=== PATIENT | male | born 1995 | race Caucasian/White ===

== ENCOUNTER 2016-05-26 08:52 | Emergency (ER) | payer OTHER ==
[2016-05-26] MEDS ORDERED: DIPHTH,PERTUSS(ACELL),TET VAC 0.5 ML VIAL IM ONE ×2 (09:25→10:14)
[2016-05-26 09:29] VITALS: BP 144/94
--- NOTE | 2016-05-26 09:29 | ERNOTE ---
Upper Extremity HPI - Narrative Date of Service: 05/26/16 - General Extremities Pain Location: thumb: left Time Seen by Provider: 05/26/16 09:21 Source: patient Exam Limitations: no limitations - Immun/Allergies/Home Medications Allergies/Adverse Reactions: Allergies Allergy/AdvReac Type Severity Reaction Status Date / Time Unobtainable Allergy Unverified 05/26/16 09:27 Home Medications: HOME MEDICATIONS NK [No Home Medication] 05/26/16 [Last Taken Unknown] - History of Present Illness Narrative: Was working with wire at work when the knife slipped, cutting the dorsal surface of his left thumb Occurred: just prior to arrival Location of Incident: work Severity: mild Method of Injury: Reports: other Reason for Fall: Reports: unknown - no fall Loss of Consciousness: Reports: no loss of consciousness Modifying Factors - (Improves): Reports: rest Modifying Factors - (Worsens): Reports: jarring, movement Associated Symptoms: Denies: tingling, weakness, numbness distally, loss of feeling Other Injuries: Reports: none Prior Treament: Denies: recently seen, currently on antibiotics Review of Systems - Review of Systems Constitutional: Present: no symptoms reported EYE: Present: no symptoms reported ENT: Present: no symptoms reported Respiratory: Present: no symptoms reported Cardiology: Present: no symptoms reported Gastrointestinal/Abdominal: Present: no symptoms reported Genitourinary: Present: no symptoms reported Musculoskeletal: Present: no symptoms reported Skin: Present: See HPI Neurological: Present: no symptoms reported Endocrine: Present: no symptoms reported Hematologic/Lymphatic: Present: no symptoms reported Psych: Present: no symptoms reported All Other Systems: All systems neg except as marked - Patient's Past Medical History Patient History - Medical: No pertinent hx Patient History - Cardiac/Respiratory: No pertinent hx Patient History - Cancer: No Hx of Cancer Patient History - Surgical Procedures: Other - Screw in left hip - Social History Smoking Status: Current every day smoker Alcohol Use: other Physical Exam - Physical Exam General Appearance: Present: wd/wn, alert, no apparent distress Eye Exam: Normal inspection: bilateral, PERRL: bilateral, EOMI: bilateral Ears, Nose, Throat: Present: normal ENT inspection Neck: Present: normal inspection Respiratory: Present: no respiratory distress Cardiovascular/Chest: Present: regular rate, rhythm Extremity Exam: Present: normal inspection, no edema Neurological Exam: Present: alert, oriented, normal mood/affect, no motor/ sensory deficits Skin Exam: Present: normal color, warm/dry, other - 2 cm curved superficial flap laceration dorsum left thumb Lymphatic Exam: Present: no adenopathy ED Progress - Vital Signs Patient's Vital Signs:: I have reviewed the patient's vital signs. - X-Ray X-Ray #1 X-Ray: hand Interpretation: Interp. by me - no bony injury Procedures Left Finger 1st Digit Length of Repair/Wound (cm): 2 Wound's Depth/Shape: superficial, into subcutaneous Wound Explored: clean Wound Intervention: irrigated w/saline Wound Repaired With: no closure required Wound Dressing: sterile dressing applied Complications: Pt rah procedure well Departure Clinical Impression: Laceration - Departure Disposition: Home self-care Condition: Good Instructions: Laceration Care, Adult, [id number] Additional Instructions: Keep the dressing clean, dry, protected and intact. Leave it in place till you come to [facility] 3 days.
--- OUTSIDE RECORDS SUMMARY | 2016-05-26 09:40 | XMS REPORT | Continuity of Care Document ---
:1995 Author Organization [facility] ([facility]) Address [address] [place] [address] Phone [phone] Care Team Providers Name Role Phone Alonso Nunez Primary Care Provider [phone] Source Comments This disclosure is being made pursuant to the Care Everywhere program, applicable federal and state laws, and may not contain all informaitonavailable regarding this patient.[facility] ([facility]) Active Allergies and Adverse Reactions Allergen Noted Date Severity Reactions Comments Amoxicillin OTHER throat and mucus sores Azithromycin Urticaria (Hives) [id number] Unknown Cefaclor OTHER pts mother stated blotchy red and "slap cheek" look Chlorpheniramine-Dm Unknown Phenylephrine Unknown Promethazine Unknown Pseudoephedrine Unknown Sulfamethoxazole Unknown Trimethoprim Unknown Current Medications Prescription Sig. Disp. Refills Start Date End Date Status FLUTICASONE PROPIONATE use into each Active (FLONASE NA) nostril. ALBUTEROL INH use by Active inhalation. 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 Social History Tobacco Use Types Packs/Day Years Used Date Never Assessed Last Filed Vital Signs Vital Sign Reading Time Taken Blood Pressure 121/66 04/13/2008 9:41 AM [employer] Pulse 61 04/13/2008 9:41 AM [employer] Temperature 36.2 C (97.2 F) 04/13/2008 9:41 AM [employer] Respiratory Rate 16 04/13/2008 9:41 AM [employer] Height 1.647 m (5' 4.84") 04/12/2008 1:24 PM [employer] Weight 62 kg (136 lb 11 oz) 04/13/2008 10:00 AM [employer] Body Mass Index - - Oxygen Saturation 98% 04/13/2008 9:41 AM [employer] Plan of Care Health Maintenance Due Date Last Done Comments Hepatitis B Vaccine (1 of 3 - Primary Series) 1994 HPV Vaccine (1 of 3 - Male 3 Dose Series) 2005 Tdap Vaccine 2005 Meningococcal Vaccine (1 of 1) 2010 Lipid Disorder Screening 2012 MMR Vaccine 2012 Td Vaccine 2012 Varicella Vaccine (1 of 2 - Adult - No Evidence of 2012 Immunity) Influenza Vaccine: Seasonal (#1) 09/26/2015 Results from Last 3 Months Not on file
== END 2016-05-26 10:25 | disposition home or self-care (01) ==
LOC: ER 08:52
DX: S61.012A Laceration without foreign body of left thumb without damage to nail, initial encounter (principal); X58.XXXA Exposure to other specified factors, initial encounter; Y93.89 Activity, other specified; Y92.9 Unspecified place or not applicable; Y99.0 Civilian activity done for income or pay; Z72.0 Tobacco use; Z23 Encounter for immunization